=== PATIENT | female | born 1935 | race Caucasian/White ===

== ENCOUNTER 2023-04-21 13:55 | Outpatient (CLI) | payer MEDICARE | END 2023-04-21 13:56 | disposition home or self-care (01) | LOC: CSHCP 13:55 | PROVIDERS: ATTEND Internal Medicine Critical Care Medicine | DX: R06.00 Dyspnea, unspecified (principal); J98.6 Disorders of diaphragm; R94.2 Abnormal results of pulmonary function studies | CPT/HCPCS: 94060; 94618; 94726; 94729 ==

== ENCOUNTER 2024-11-26 08:38 | Outpatient (CLI) | payer MEDICARE | END 2024-11-26 08:39 | disposition home or self-care (01) | LOC: CSHSLEEP 08:38 | PROVIDERS: ATTEND Internal Medicine Critical Care Medicine | DX: R06.83 Snoring (principal); I11.0 Hypertensive heart disease with heart failure; I50.9 Heart failure, unspecified; G47.33 Obstructive sleep apnea (adult) (pediatric); R09.02 Hypoxemia | CPT/HCPCS: 95811 ==